=== PATIENT | female | born 2000 | race Caucasian/White ===

== ENCOUNTER 2023-10-31 10:35 | Emergency (ER) | payer SELFPAY ==
[2023-10-31 10:50] VITALS: BP 115/80
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
[2023-10-31 11:48] VITALS: BMI 22.0
[2023-10-31 13:00] VITALS: BP 118/80
--- NOTE | 2023-10-31 13:00 | EDRN ---
Reviewed discharge instructions with patient. Verbalized understanding. Ambulated with steady gait to the lobby.
== END 2023-10-31 13:00 | disposition home or self-care (01) ==
LOC: EMR 10:35
PROVIDERS: EMERGENCY PHYSICIAN Emergency Medicine; FAMILY PHYSICIAN Family Medicine
DX: S16.1XXA Strain of muscle, fascia and tendon at neck level, initial encounter (principal); V89.2XXA Person injured in unspecified motor-vehicle accident, traffic, initial encounter; Y92.410 Unspecified street and highway as the place of occurrence of the external cause
CPT/HCPCS: 99284; 70450; 72125

== ENCOUNTER 2025-02-11 15:50 | Emergency (ER) | payer OTHER, SELFPAY ==
[2025-02-11 15:53] VITALS: BP 120/90
[2025-02-11 16:30] LABS: Carboxyhemoglobin 2.6 %
[2025-02-11 16:32] LABS: Hematocrit 42.3 % (37.0-47.0); Hemoglobin 14.5 g/dL (12.0-16.0); Mean Corp Hgb Conc. 34.3 g/dL (33.0-37.0); Mean Corpuscular Volume 89.4 fL (81.0-99.0); Nucleated Red Blood Cells % 0 %; Platelet Count 336 10^3/uL (130-400); Red Cell Dist. Width 11.4 % (11.5-14.5)
[2025-02-11 16:42] LABS: HCG, Serum Qualitative Screen Negative
[2025-02-11 16:49] LABS: ALT (SGPT) 24 U/L (0-35); AST (SGOT) 25 U/L (14-36); Albumin 5.1 g/dl (3.5-5.0); Alkaline Phosphatase 60 U/L (38-126); Blood Urea Nitrogen 7 mg/dl (7-17); Calcium 9.7 mg/dl (8.4-10.2); Carbon Dioxide 25 mmol/L (22-30); Chloride 102 mmol/L (98-107); Glucose 90 mg/dl (70-99); Potassium 3.8 mmol/L (3.5-5.1); Sodium 135 mmol/L (135-145); Total Protein 8.3 g/dl (6.3-8.2); eGFR > 60.00
--- NOTE | 2025-02-11 19:22 | ED.GENMED ---
History of Present Illness
General
Chief Complaint: Dizziness
Source: patient
Exam Limitations: none
Time Seen by Provider: 02/11/25 19:13
Nursing documentation reviewed up to this point in time: agreed with
History of Present Illness
History of Present Illness:
Patient to the emergency department for evaluation of dizziness and nausea. 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 She states she started noticing her symptoms late this morning. 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 She was concerned for carbon monoxide poisoning. Brought self to the emergency department for evaluation. Denies headache vision changes chest pain shortness of breath abdominal pain vomiting. Denies
any fever chills or recent illness.
Past History
Past History
ED Past Medical History: None
ED Past Surgical History: None
Review of Systems
Review of Systems
Allergies reviewed?: Yes
All Other Systems: ROS reviewed and negative except as documented in HPI and ROS
Constitutional: Reports no symptoms
EENT: Reports no symptoms
Respiratory: Reports no symptoms
Cardiac: Reports no symptoms
ABD/GI: Reports nausea
: Reports no symptoms
Musculoskeletal: Reports no symptoms
Skin: Reports no symptoms
Neurological: Reports dizzy
Psychiatric: Reports no symptoms
Phy Exam
General Physical Exam
General Presentation: well appearing and mild distress
General age: appears stated age
General Skin: warm and dry
General Habitus: normal
General Mental: alert
Eye Exam
Eye Exam: PERRL, EOMI, conjunctiva normal and globe normal
Cardiovascular Exam
Cardiovascular Exam: regular rate/rhythm and no edema
Pulmonary Exam
Pulmonary Exam: lungs clear and no respiratory distress
Neurological Exam
Neurological Exam: alert, oriented x3, CN II-XII intact, no motor deficits, no sensory deficits, speech normal and normal gait
Mental
Mental Status: oriented to person, oriented to place, oriented to time and usual mental status
Describe Speech: normal speech
Cranial
Cranial Nerves: normal
EOM (CN3/4/6): intact
Motor
Seizure Activity: none
Gait: normal
Tremors: none
Other Movement Disorders: none
Right upper extremity: 4
Right lower extremity: 4
Left upper extremity: 4
Left lower extremity: 4
Bilateral upper extremities: 4
Bilateral lower extremities: 4
Sensory
Sensory Exam: intact
Cerebellar
Cerebellar Function: normal finger to nose, normal heel to marcial and normal Romberg test
Musculoskeletal Exam
Musculoskeletal Exam: full ROM
Skin Exam
Skin Exam: normal color, warm/dry and no rash
Psychiatric Exam
Psychiatric Exam: normal mood/affect
Course
Orders/Labs/Results
Orders:
Orders
02/11/25 15:59
EKG [Electrocardiogram (*1)] Urgent
Reason for Study: Vertigo / Dizzy
Test Result ONCE
02/11/25 16:00
EKG- Treatment ONCE
02/11/25 16:25
CBC/With Diff [Complete Blood Count/With Diff] Urgent
Carboxyhemoglobin Urgent
Comprehensive Metabolic Panel Urgent
HCG, Serum Qualitative Screen Urgent
Abnormal Lab Results
02/11/25
16:25
RDW 11.4 L %
(11.5-14.5)
Eosinophils % 8.7 H %
(0-6)
Total Protein 8.3 H g/dl
(6.3-8.2)
Albumin 5.1 H g/dl
(3.5-5.0)
02/11/25 16:25
02/11/25 16:25
Vital Signs
Initial and Last Documented VS:
Initial Vital Signs
Temp Pulse Resp BP Pulse Ox
98.2 F 78 16 120/90 100
02/11/25 15:53 02/11/25 15:53 02/11/25 15:53 02/11/25 15:53 02/11/25 15:53
Last Documented Vital Signs
Temp Pulse Resp BP Pulse Ox
98.2 F 78 16 120/90 100
02/11/25 15:53 02/11/25 15:53 02/11/25 15:53 02/11/25 15:53 02/11/25 15:53
*Radiology
Radiology exam reviewed: radiology read reviewed
*Pulse Oximetry
SaO2: 100
Oxygen Mode of Delivery: Room air
Patient hypoxic: no
*Critical Care Note
Total Time (30-74mins, 75-104mins- exclusive of procedures): Not Applicable
Update Note
Update Note:
Patient to the emergency department for complaint of dizziness and nausea. She reports symptoms started late this morning while at work. She reports that other employees were experiencing the same symptoms. She states that workers were working on
the HVAC system and she was concerned about carbon monoxide poisoning. On exam she is alert and oriented, no visible distress. Vital signs are stable and she remains afebrile. Pulse ox 99% on room air. Lungs are clear to auscultation.
Orthostatics evaluated, negative tilt. Labs reviewed no concerning findings. Neurologic exam unremarkable. Normal carboxyhemoglobin level. Discussed findings with patient. No concerning findings on exam today. Will discharge home, close
follow-up with Workmen's Comp. provider. She was given instructions on signs and symptoms to return to the emergency department and she is agreeable to this plan.
ED Attending Note
-
Portions of this chart may have been created with voice recognition software.� Occasional wrong word or��sound alike� substitutions may have occurred due to the inherent limitations of voice recognition software.
Discharge Plan
Departure
Patient Disposition: Home (Routine Discharge)
Date of Disposition: 02/11/25
Time of Disposition: 19:23
Patient with high blood pressure during this ER visit?: No
Condition: Good
Covid-19: Not Applicable
Discharge Problem:
Dizziness
Instructions: Dizziness
Prescriptions:
No Action
cyclobenzaprine 10 mg tablet
10 mg PO Q8H PRN (Reason: muscle spasm) Qty: 7 0RF
Stand Alone Forms: Return to Work
Activity Restrictions/Additional Instructions:
Follow-up with your Workmen's Comp. provider in 1 to 2 days. Return to the emergency department immediately for any changes in/worsening of your symptoms.
Interventions
Interventions:
*Risk Screen - Suicide Last Done: 02/11/25 15:53
*General Assessment Last Done: 02/11/25 19:16
*Neglect/Abuse Screening Last Done: 02/11/25 15:53
*ED- Fall Risk Assessment Last Done: 02/11/25 19:16
*ED COVID-19 Vaccine History Last Done: 02/11/25 19:16
*ED Influenza Vaccine History Last Done: 02/11/25 19:16
ED- Neurological Assessment Last Done: 02/11/25 19:16
Discharge Date and Time
Print Language: MONGOLIAN
[2025-02-11 19:25] VITALS: BP 120/81; BP 124/80; BP 124/83; PULSE 60; PULSE 72; PULSE 74
[2025-02-11 19:27] VITALS: BP 124/80
== END 2025-02-11 19:37 | disposition home or self-care (01) ==
LOC: EMR 15:50
PROVIDERS: Student in an Organized Health Care Education/Training Program; EMERGENCY PHYSICIAN Emergency Medicine
DX: R42 Dizziness and giddiness (principal); R11.0 Nausea
CPT/HCPCS: 99284; 80053; 82375; 84703; 85025; 93005